=== PATIENT | female | born 1995 ===

== ENCOUNTER 2024-09-10 14:35 | Emergency (ER) | payer SELFPAY ==
[2024-09-10 14:36] VITALS: TEMP 36.6; BMI 26.4
[2024-09-10 14:41] VITALS: BP 122/81; PULSE 93; RESP 16; O2SAT 100
--- NOTE | 2024-09-10 15:15 | ED.RN ---
PT HAS A LAC TO THE BACK OF HER HEAD THAT WILL PROB NEEDS STITCHES. SHE STATED THAT SHE IS HAVING PAIN AND WANTED TO KNOW HOW SOON THEY WOULD BE IN SEE HER. I EXPLAINED THAT SHE IS 3RD TO BE SEEN IN LINE AND IT IS A BUSY DAY AND THEY WOULD BE IN SOON THEY COULD BE. PT ASKED IF SHE COULD LEAVE. I ADVISED HER NOT TO AND SHE WOULD NEED STITCHES, BUT THAT IT WAS UP TO HER.
--- NOTE | 2024-09-10 15:46 | ED.RN ---
dr silva in room. introdued self tp pt and pt states she is tired of waiting and is going to [place].
== END 2024-09-10 16:07 | disposition left against medical advice (07) ==
LOC: ED 15:56
PROVIDERS: Emergency Provider Emergency Medicine; Visit Provider Emergency Medicine
DX: Z53.21 Procedure and treatment not carried out due to patient leaving prior to being seen by health care provider (principal)
CPT/HCPCS: 99284